=== PATIENT | female | born 1975 | race American Indian/Alaskan Native ===

== ENCOUNTER 2017-10-10 18:31 | Emergency (ER) | payer SELFPAY ==
[2017-10-10 19:06] VITALS: RESP 18; O2SAT 99
[2017-10-10 19:07] VITALS: BMI 41.9
--- NOTE | 2017-10-10 20:19 | ED PDOC ---
Arrival/HPI - General Chief Complaint: Trauma Time Seen by Provider: 10/10/17 19:16 Historian: Patient - History of Present Illness Narrative History of Present Illness (Text): 10/10/17 20:16 42yo female with no pmhx who present with complaint of left ankle/foot pain s/p trauma last night. states she slipped and fell, injuring her left ankle. notes ambulation with limp. states she came to ED today secondary to the pain and swelling. She did not take any medication for the pain. Denies any other complaint. Past Medical History - Provider Review Nursing Documentation Reviewed: Yes - Psychiatric Hx Substance Use: No - Surgical History Hx Tubal Ligation: Yes Family/Social History - Physician Review Nursing Documentation Reviewed: Yes Family/Social History: Unknown Family HX Smoking Status: Current Some Days Smoker Hx Alcohol Use: No Hx Substance Use: No Allergies/Home Meds Allergies/Adverse Reactions: Allergies No Known Allergies Allergy (Verified 10/10/17 19:11) Review of Systems - Physician Review All systems were reviewed & negative as marked: Yes - Review of Systems Constitutional: Normal Eyes: Normal ENT: Normal Respiratory: Normal Cardiovascular: Normal Gastrointestinal: Normal Genitourinary Female: Normal Musculoskeletal: Arthralgias (left ankle/foot) Skin: Normal Neurological: Normal Endocrine: Normal Hemo/Lymphatic: Normal Psychiatric: Normal Physical Exam Vital Signs Reviewed: Yes Vital Signs Temp Pulse Resp BP Pulse Ox 10/10/17 19:06 99.1 F 87 18 150/99 H 99 Temperature: Afebrile Blood Pressure: Normal Pulse: Regular Respiratory Rate: Normal Appearance: Positive for: Well-Appearing, Non-Toxic, Comfortable Pain Distress: None Mental Status: Positive for: Alert and Oriented X 3 - Systems Exam Head: Present: Atraumatic, Normocephalic Pupils: Present: PERRL Extroacular Muscles: Present: EOMI Conjunctiva: Present: Normal Mouth: Present: Moist Mucous Membranes Neck: Present: Normal Range of Motion Respiratory/Chest: Present: Clear to Auscultation, Good Air Exchange. No: Respiratory Distress, Accessory Muscle Use Cardiovascular: Present: Regular Rate and Rhythm, Normal S1, S2. No: Murmurs Abdomen: No: Tenderness, Distention, Peritoneal Signs Back: Present: Normal Inspection Upper Extremity: Present: Normal Inspection. No: Cyanosis, Edema Lower Extremity: Present: Normal Inspection, NORMAL PULSES, Normal ROM, Tenderness (Diffuse left daphney and proximal dorsal foot), Swelling (Left ankle worse on the lateral malleolus), Neurovascularly Intact, Capillary Refill < 2 s. No: Edema, CALF TENDERNESS Neurological: Present: GCS=15, CN II-XII Intact, Speech Normal Skin: Present: Warm, Dry, Normal Color. No: Rashes Psychiatric: Present: Alert, Oriented x 3, Normal Insight, Normal Concentration Medical Decision Making ED Course and Treatment: 10/10/17 20:21 Left foot/ankle xray - Spiral mildly displaced distal fibula fracture noted Posterior splint placed. Crutches given. Result was DW the pt She was referred to ortho Ibuprofen and Tramdol given for pain control. - RAD Interpretation Radiology Orders: 10/10/17 19:18 ANKLE LEFT 3 VIEWS ROUTINE [RAD] Stat 10/10/17 19:19 FOOT LEFT 3 VIEWS ROUTINE [RAD] Stat - Medication Orders Current Medication Orders: Discontinued Medications Ketorolac Tromethamine (Toradol) 60 mg IM STAT STA Stop: 10/10/17 19:20 Last Admin: 10/10/17 19:30 Dose: 60 mg MAR Pain Assessment Document 10/10/17 19:30 ([facility]10[facility]17 [id number] Pain Reassessment Is this a pain reassessment? Yes Location Left, Right or Bilateral Left Pain Location Body Site Leg Description Description Constant IM Administration Charges Document 10/10/17 19:30 (Rec: 10/10/17 19:31 [id number] Charges for Administration # of IM Administrations 1 Disposition/Present on Arrival - Present on Arrival Any Indicators Present on Arrival: No History of DVT/PE: No History of Uncontrolled Diabetes: No Urinary Catheter: No History of Decub. Ulcer: No History Surgical Site Infection Following: None - Disposition Have Diagnosis and Disposition been Completed?: Yes Diagnosis: Ankle fracture Disposition: HOME/ ROUTINE Disposition Time: 20:25 Patient Plan: Discharge Condition: STABLE Discharge Instructions (ExitCare): Ankle Fracture Additional Instructions: Follow up with orthopedist Return to ED for any new or worsening symptoms Prescriptions: Ibuprofen [Motrin Tab] 600 mg PO Q6 #20 tab traMADol [Ultram] 50 mg PO TID #10 tab Referrals: Laureano Ruiz MD [Staff Provider] - Follow up with primary [facility] [Outside] - Follow up with primary [facility] [Outside] - Follow up with primary
[2017-10-10] MEDS ORDERED: Oxycodone/Acetaminophen 5/325 mg Tab PO STA (20:31)
[2017-10-10 21:12] VITALS: BP 148/86; PULSE 88; TEMP 99
--- NOTE | 2017-10-11 10:00 | RAD ---
PROCEDURE: Left Ankle Radiographs. HISTORY: ankle pain s/p trauma COMPARISON: None FINDINGS: BONES: There is a comminuted obliquely oriented fracture through the distal fibula above the level of the ankle joint. There is mild displacement JOINTS: Normal. No osteoarthritis. Ankle mortise maintained. Talar dome intact SOFT TISSUES: Normal. OTHER FINDINGS: None. IMPRESSION: There is a comminuted obliquely oriented fracture through the distal fibula above the level of the ankle joint. There is mild displacement
--- NOTE | 2017-10-11 10:01 | RAD ---
PROCEDURE: Left Foot Radiographs. HISTORY: foot pain s/p tauma COMPARISON: None. FINDINGS: BONES: Normal. No fracture. JOINTS: Normal. SOFT TISSUES: Normal. OTHER FINDINGS: Distal fibular fracture as reported on ankle study IMPRESSION: Negative study
== END 2017-10-10 21:12 | disposition home or self-care (01) ==
LOC: MERGE 18:31 → ED 18:31
DX: S82.832A Other fracture of upper and lower end of left fibula, initial encounter for closed fracture (principal); W01.0XXA Fall on same level from slipping, tripping and stumbling without subsequent striking against object, initial encounter
CPT/HCPCS: 73610; 73630; 96372; 99285; J1885